=== PATIENT | female | born 1970 | race American Indian/Alaskan Native ===

== ENCOUNTER 2019-06-10 18:39 | Emergency (ER) | payer OTHER ==
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
[2019-06-10 19:54] VITALS: BP 155/98
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
[2019-06-10] MEDS ORDERED: ONDANSETRON 4 MG ODT TAB PO ONE (20:25)
[2019-06-10] MEDS ORDERED: HYDROcodone/ACETAMINOPHEN 5-325 MG TAB PO ONE (20:25)
[2019-06-10] MEDS ORDERED: IBUPROFEN 600 MG TAB PO ONE (20:25)
[2019-06-10] MEDS ORDERED: FAMOTIDINE 20 MG TAB PO ONE (20:25)
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
== END 2019-06-10 21:30 | disposition home or self-care (01) ==
LOC: ED 18:39
DX: M62.830 Muscle spasm of back (principal); V49.49XA Driver injured in collision with other motor vehicles in traffic accident, initial encounter; Y93.89 Activity, other specified; Y92.410 Unspecified street and highway as the place of occurrence of the external cause; Y99.8 Other external cause status
CPT/HCPCS: 72100; Q0162

== ENCOUNTER 2020-11-15 08:19 | Emergency (ER) | payer OTHER ==
--- NOTE | 2020-11-15 08:32 | Event Note ---
ED Screening Note ED Screening Note: HEMATURIA AND SUPRAPUBIC PAIN SINCE FRIDAY ON [place] ONLY NO HX STONES VSS NO N/V/D This initial assessment/diagnostic orders/clinical plan/treatment(s) is/are subject to change based on patients health status, clinical progression and re- assessment by fellow clinical providers in the ED. Further treatment and workup at subsequent clinical providers discretion. Patient/guardian urged not to elope from the ED as their condition may be serious if not clinically assessed and managed. Initial orders include: UA
[2020-11-15 08:33] VITALS: BP 146/89
[2020-11-15 09:00] LABS: HCG Qualitative,Urine Negative (Negative)
[2020-11-15 09:02] LABS: Bilirubin,Urine NEG (Negative); Blood,Urine LG (Negative); Color,Urine Yellow (Yellow); Mucus,Urine FEW /HPF; Protein,Urine <15 mg/dL mg/dL (Negative); Urobilinogen,Urine < 2.0 mg/dL (<2.0)
[2020-11-15 09:14] LABS: RBC,Urine > 182.0 /HPF (0.0-6.0)
[2020-11-15 10:34] LABS: Hematocrit 43.3 % (30.3-42.9); Hemoglobin 14.2 gm/dl (10.1-14.3); Mean Corpuscular HGB Conc 33 % (30-34); Mean Corpuscular Volume 82 fl (79-97); Platelet Count 238 K/mm3 (140-440); Red Blood Count 5.28 M/mm3 (3.65-5.03); Red Cell Distribution Width 14.1 % (13.2-15.2)
[2020-11-15 10:45] LABS: Blood Urea Nitrogen 9 mg/dL (7-17); Calcium 9.7 mg/dL (8.4-10.2); Hemolysis Index 81
[2020-11-15 10:52] LABS: BUN/Creatinine Ratio 23
[2020-11-15] MEDS ORDERED: SODIUM CHLORIDE 0.9% 1000 ML 1,000 ML IV ONE (11:29)
[2020-11-15] MEDS ORDERED: cefTRIAXone/NS 1 GM/50 ML 1 GM/50 ML BAG IV ONE (11:29)
--- NOTE | 2020-11-15 11:29 | Emergency Department Report ---
ED Dysuria HPI - HPI Chief Complaint: Urogenital-Female Stated Complaint: BLOOD IN URINE Time Seen by Provider: 11/15/20 08:29 Duration: 3 Days Severity: Mild Symptoms: Dysuria: Yes, Frequency: No, Suprapubic Pain: No, Flank Pain: Yes, Fever: No, Hematuria: Yes, Abdominal Pain: No, Previous UTI's: Yes (Left) Other History: Patient is a 50-year-old -Af[place] female that comes to the ER today complaining of left side pain and hematuria. She has no fever or chills. She feels pressure when she urinates. She is no longer menstruating. Patient has not seen her primary care for this issue. She denies any history of kidney stones. Patient ambulatory nontoxic and [id number] on arrival to triage. ED Review of Systems ROS: Stated complaint: BLOOD IN URINE Other details as noted in HPI Comment: All other systems reviewed and negative ED Past Medical Hx - Past Medical History Previous Medical History?: Yes Hx of Cancer: Yes (BREAST) - Surgical History Past Surgical History?: Yes Additional Surgical History: BILATERALLY MASTECTOMY - Family History Family history: no significant - Social History Smoking Status: Never Smoker Substance Use Type: Alcohol - Medications Home Medications: Home Medications Medication Instructions Recorded Confirmed Last Taken Type Ondansetron [Zofran Odt] 4 mg PO Q8HR PRN #10 tab.rapdis 11/15/20 Unknown Rx Sulfamethoxazole/Trimethoprim 1 each PO BID #10 tablet 11/15/20 Unknown Rx [Bactrim DS TAB] Tamsulosin [Flomax] 0.4 mg PO QDAY #10 cap 11/15/20 Unknown Rx traMADoL [Ultram] 50 mg PO Q6HR PRN #10 tablet 11/15/20 Unknown Rx Dysuria Exam - Exam General: Vital signs noted. No distress. Alert and acting appropriately. Exam: Yes Moist Mucous Membranes, No CVA Tenderness, No Abdominal Tenderness, No Rigidity or Guarding Labs: Lab Results 11/15/20 11/15/20 11/15/20 Range/Units 08:40 09:32 09:32 WBC 3.9 L (4.5-11.0) K/mm3 RBC 5.28 H (3.65-5.03) M/mm3 Hgb 14.2 (10.1-14.3) gm/dl Hct 43.3 H (30.3-42.9) % MCV 82 (79-97) fl MCH 27 L (28-32) pg MCHC 33 (30-34) % RDW 14.1 (13.2-15.2) % Plt Count 238 (140-440) K/mm3 Sodium 140 (137-145) mmol/L Potassium 4.2 (3.6-5.0) mmol/L Chloride 106.3 (98-107) mmol/L Carbon Dioxide 26 (22-30) mmol/L Anion Gap 12 mmol/L BUN 9 (7-17) mg/dL Creatinine 0.4 L (0.6-1.2) mg/dL Estimated GFR > 60 ml/min BUN/Creatinine Ratio 23 % Glucose 91 (65-100) mg/dL Calcium 9.7 (8.4-10.2) mg/dL Urine Color Yellow (Yellow) Urine Turbidity Cloudy (Clear) Urine pH 8.0 H (5.0-7.0) Ur Specific [place] 1.012 (1.003-1.030) Urine Protein <15 mg/dl (Negative) mg/dL Urine Glucose (UA) Neg (Negative) mg/dL Urine Ketones Neg (Negative) mg/dL Urine Blood Lg (Negative) Urine Nitrite Neg (Negative) Ur Reducing Substances Not Reportable Urine Bilirubin Neg (Negative) Urine Ictotest Not Reportable Urine Urobilinogen < 2.0 (<2.0) mg/dL Ur Leukocyte Esterase Tr (Negative) Urine WBC (Auto) 9.0 H (0.0-6.0) /HPF Urine RBC (Auto) > 182.0 (0.0-6.0) /HPF U Epithel Cells (Auto) 14.0 H (0-13.0) /HPF Urine Mucus Few /HPF Urine Yeast (Budding) 1+ /HPF Urine HCG, Qual Negative (Negative) ED Course Vital Signs 11/15/20 08:30 Temperature 98.5 F Pulse Rate 71 Respiratory 18 Rate Blood Pressure 146/89 O2 Sat by Pulse 98 Oximetry ED Medical Decision Making - Lab Data Result diagrams: 11/15/20 09:32 11/15/20 09:32 - Radiology Data Radiology results: report reviewed, image reviewed K STONES; SEE REPORT - Medical Decision Making Lab Results 11/15/20 11/15/20 11/15/20 Range/Units 08:40 09:32 09:32 WBC 3.9 L (4.5-11.0) K/mm3 RBC 5.28 H (3.65-5.03) M/mm3 Hgb 14.2 (10.1-14.3) gm/dl Hct 43.3 H (30.3-42.9) % MCV 82 (79-97) fl MCH 27 L (28-32) pg MCHC 33 (30-34) % RDW 14.1 (13.2-15.2) % Plt Count 238 (140-440) K/mm3 Sodium 140 (137-145) mmol/L Potassium 4.2 (3.6-5.0) mmol/L Chloride 106.3 (98-107) mmol/L Carbon Dioxide 26 (22-30) mmol/L Anion Gap 12 mmol/L BUN 9 (7-17) mg/dL Creatinine 0.4 L (0.6-1.2) mg/dL Estimated GFR > 60 ml/min BUN/Creatinine Ratio 23 % Glucose 91 (65-100) mg/dL Calcium 9.7 (8.4-10.2) mg/dL Urine Color Yellow (Yellow) Urine Turbidity Cloudy (Clear) Urine pH 8.0 H (5.0-7.0) Ur Specific [place] 1.012 (1.003-1.030) Urine Protein <15 mg/dl (Negative) mg/dL Urine Glucose (UA) Neg (Negative) mg/dL Urine Ketones Neg (Negative) mg/dL Urine Blood Lg (Negative) Urine Nitrite Neg (Negative) Ur Reducing Substances Not Reportable Urine Bilirubin Neg (Negative) Urine Ictotest Not Reportable Urine Urobilinogen < 2.0 (<2.0) mg/dL Ur Leukocyte Esterase Tr (Negative) Urine WBC (Auto) 9.0 H (0.0-6.0) /HPF Urine RBC (Auto) > 182.0 (0.0-6.0) /HPF U Epithel Cells (Auto) 14.0 H (0-13.0) /HPF Urine Mucus Few /HPF Urine Yeast (Budding) 1+ /HPF Urine HCG, Qual Negative (Negative) Labs noted. Creatinine normal. WBC normal. UA noted. CT scan noted. 1 L normal saline, Toradol, Zofran for pain and comfort. Patient given a gram of Rocephin IV. Patient on reexam is ambulatory, nontoxic [id number]. She is taking p.o. patient has no back pain. She reports decrease in the left flank pain. She has no CVA tenderness on exam. Patient being discharged home with discharge plan of care which includes urology follow-up. Patient being discharged home on Bactrim. She verbalizes understanding of discharge plans. Vital Signs 11/15/20 11/15/20 08:30 13:05 Temperature 98.5 F Pulse Rate 71 Respiratory 18 18 Rate Blood Pressure 146/89 O2 Sat by Pulse 98 Oximetry - Differential Diagnosis RO K STONES/UTI Critical care attestation.: If time is entered above; I have spent that time in minutes in the direct care of this critically ill patient, excluding procedure time. ED Disposition Clinical Impression: Kidney stones, Cystitis, UTI (urinary tract infection) Disposition: DC- TO HOME OR SELFCARE Is pt being admited?: No Does the pt Need Aspirin: No Condition: Stable Instructions: Kidney Stones, [id number] Additional Instructions: drink a lot of water meds as ordered today follow up with urology danilo referrals below Prescriptions: Sulfamethoxazole/Trimethoprim [Bactrim DS TAB] 1 each PO BID #10 tablet Tamsulosin [Flomax] 0.4 mg PO QDAY #10 cap traMADoL [Ultram] 50 mg PO Q6HR PRN #10 tablet PRN Reason: Pain Ondansetron [Zofran Odt] 4 mg PO Q8HR PRN #10 tab.rapdis PRN Reason: Vomiting Referrals: JOSE RAMON JUDGE NP-C [Primary Care Provider] - 3-5 Days RADHA ALEXANDER MD [Staff Physician] - 3-5 Days Forms: Work/School Release Form(ED) Time of Disposition: 13:07
[2020-11-15] MEDS ORDERED: ONDANSETRON 4 MG/2 ML INJ IV ONE (11:30)
[2020-11-15] MEDS ORDERED: KETOROLAC 30 MG/1 ML INJ IV ONE (11:30)
--- NOTE | 2020-11-15 12:56 | Cat Scan Report ---
CT ABDOMEN AND PELVIS WITHOUT CONTRAST INDICATION / CLINICAL INFORMATION: Left flank pain. TECHNIQUE: Axial CT images were obtained through the abdomen and pelvis without IV contrast. All CT scans at [facility] are performed using CT dose reduction for ALARA by means of automated exposure control. COMPARISON: None available. FINDINGS: LOWER CHEST: No significant abnormality. LIVER: No significant abnormality. GALLBLADDER: No significant abnormality. BILE DUCTS: No significant abnormality. PANCREAS: No significant abnormality. SPLEEN: Spleen is normal in size and contains an indeterminate ovoid hypodensity measuring up to 8 mm located along its midportion on image 18 of series 4. No other significant abnormality. ADRENALS: No significant abnormality. RIGHT KIDNEY / URETER: There are multiple nonobstructive right renal stones with the largest stone al rick the lower pole measuring up to 2-3 mm. No other significant abnormality. LEFT KIDNEY / URETER: There are numerous nonobstructive left renal stones measuring up to 4 mm along the lower pole. No other significant abnormality. STOMACH / SMALL BOWEL: No significant abnormality. COLON: No significant abnormality. APPENDIX: No significant abnormality. PERITONEUM: No free fluid. No free air. No fluid collection. LYMPH NODES: No significant adenopathy. AORTA / ARTERIES: No significant abnormality. IVC / VEINS: No significant abnormality. URINARY BLADDER: No significant abnormality. REPRODUCTIVE ORGANS: Prior hysterectomy. No significant abnormality. ADDITIONAL FINDINGS: None. SKELETAL SYSTEM: No significant abnormality. IMPRESSION: 1. Nonobstructive bilateral renal stones as above. 2. Indeterminate small splenic lesion as above. Comparison with prior available CT imaging of the abd omen would be helpful for further evaluation. Signer Name: Jhonatan Arreguin MD Signed: 11/15/2020 12:10 PM Workstation Name: [id number]
== END 2020-11-15 14:51 | disposition home or self-care (01) ==
LOC: ED 08:19
DX: N20.0 Calculus of kidney (principal); N30.91 Cystitis, unspecified with hematuria; Z98.890 Other specified postprocedural states; Z79.899 Other long term (current) drug therapy
CPT/HCPCS: 36415; 74176; 80048; 81001; 81025; 85027; 87086; 96365; 96366; 96375; 99284; J0696; J1885; J2405; J7030